=== PATIENT | male | born 1960 | race Caucasian/White ===

== ENCOUNTER 2016-10-28 08:52 | Inpatient (IN) | payer OTHER ==
[~2016-10-28] VITALS: Ht 167.6 cm; Wt 102.5 kg
[2016-10-28] VITALS (13 sets, daily range): BP systolic 97–154; BP diastolic 51–86; PULSE 74–111; RESP 10–24; TEMP 97.8–98.8; O2SAT 98–100
[2016-10-28] MEDS ORDERED: OCTREOTIDE ACETATE 50 MCG/ML AMP IVP ONE (09:15)
[2016-10-28] MEDS ORDERED: KETOROLAC TROMETHAMINE 30 MG VIAL IVP ONE (09:15)
[2016-10-28] MEDS ORDERED: PANTOPRAZOLE SODIUM 80 MG in NS 100 ML IV ONE (09:15)
[2016-10-28] MEDS ORDERED: PROCHLORPERAZINE EDISYLATE 10 MG/2 ML VIAL IVP ONE (09:15)
[2016-10-28] MEDS ORDERED: cefTRIAXone 1 GM IVPB PREMIX 50 ML IV ONE (09:15)
[2016-10-28] MEDS ORDERED: NACL 0.9% 1,000 ML IV ONE (09:15)
[2016-10-28] MEDS ORDERED: ONDANSETRON HCL 4 MG/2 ML VIAL IVP ONE (09:15)
[2016-10-28] MEDS ORDERED: PANTOPRAZOLE SODIUM 40 MG/VIAL (PROTONIX) ONE (09:23)
[2016-10-28 09:26] LABS: BASOPHILS % (AUTO) 0.6 % (0.0-2.0); EOSINOPHILS % (AUTO) 0.9 % (0.0-4.0); HEMATOCRIT 30.3 % (36-54); HEMOGLOBIN 9.8 g/dL (14.0-18.0); LYMPHOCYTES # (AUTO) 0.6 K/uL (1.0-5.5); LYMPHOCYTES % (AUTO) 15.5 % (20.5-51.5); MEAN CORPUSCULAR HEMOGLOBIN 27 pg (27-31); MEAN CORPUSCULAR HGB CONC 32 % (32-36); MEAN CORPUSCULAR VOLUME 82 fL (79.0-98.0); MONOCYTES # (AUTO) 0.4 K/uL (0.0-1.0); MONOCYTES % (AUTO) 8.8 % (1.7-9.3); NEUTROPHILS # (AUTO) 3.1 K/uL (1.8-7.7); NEUTROPHILS % (AUTO) 74.2 % (40.0-70.0); PLATELET COUNT (AUTO) 104 K/uL (130-430); RED BLOOD CELL COUNT(AUTO) 3.68 MIL/uL (4.2-6.2); RED CELL DISTRIBUTION WIDTH 16.5 % (9.0-15.0); WHITE BLOOD COUNT (AUTO) 4.1 K/uL (4.8-10.8)
[2016-10-28 09:38] LABS: CALCIUM 8.1 mg/dL (8.4-11.0); CREATININE 0.98 mg/dL (0.55-1.30); POTASSIUM 4.1 mmol/L (3.5-5.1)
[2016-10-28 09:42] LABS: ALBUMIN 2.8 g/dL (3.4-4.8); TOTAL PROTEIN, SERUM 6.5 g/dL (6.4-8.3)
[2016-10-28] MEDS ORDERED: D5NS 1,000 ML IV ONE (11:00)
[2016-10-28] MEDS ORDERED: ONDANSETRON HCL 4 MG/2 ML VIAL ONE (12:19)
[2016-10-28] MEDS ORDERED: LORazepam 2 MG/ML VIAL IVP PRN (13:15)
[2016-10-28 14:36] LABS: HEMATOCRIT 25.9 % (36-54); HEMOGLOBIN 8.2 g/dL (14.0-18.0)
[2016-10-28] MEDS: chlordiazePOXIDE HCL 25 MG CAPSULE PO SCH ×2 (14:53→21:06)
[2016-10-28] MEDS: OCTREOTIDE ACETATE 1,250 MCG in NS 243.75 ML IV SCH (15:42)
[2016-10-28] MEDS ORDERED: cefTRIAXone 1 GM in D5W 50 ML IV ONE (16:45)
[2016-10-28] MEDS: FOLIC ACID 1 MG, THIAMINE HCL 100 MG, MAGNESIUM SULFATE 1 GM, MVI 10 ML in NACL 0.9% 1,... IV SCH (18:01)
[2016-10-28 19:40] LABS: HEMATOCRIT 24.2 % (36-54); HEMOGLOBIN 7.7 g/dL (14.0-18.0)
[2016-10-28] MEDS: PANTOPRAZOLE SODIUM 40 MG/VIAL (PROTONIX) IVP SCH (21:06)
[2016-10-28] MEDS ORDERED: LACTULOSE 20 GM/30 ML UDC PO ONE (21:30)
[2016-10-28 22:10] LABS: INR 1.3 (0.80-1.20); PROTHROMBIN TIME 13.7 SECS (9.5-12.5)
[2016-10-29] VITALS (23 sets, daily range): BP systolic 120–178; BP diastolic 56–103; PULSE 67–96; RESP 9–22; TEMP 98.7–99.2; O2SAT 96–100
[2016-10-29] MEDS ORDERED: FLU VACC QS 2016-17(36MOS+)/PF 0.5 ML/SYR SYRINGE I.M. PRN (00:15)
[2016-10-29] MEDS: D5NS 1,000 ML IV SCH ×3 (07:30→17:30)
[2016-10-29] MEDS: chlordiazePOXIDE HCL 25 MG CAPSULE PO SCH ×3 (09:00→20:15)
[2016-10-29] MEDS: LACTULOSE 20 GM/30 ML UDC PO SCH ×4 (09:00→20:12)
[2016-10-29 09:16] LABS: HEMATOCRIT 27.8 % (36-54)
[2016-10-29] MEDS: PANTOPRAZOLE SODIUM 40 MG/VIAL (PROTONIX) IVP SCH (09:17)
[2016-10-29 09:26] LABS: INR 1.2 (0.80-1.20); PROTHROMBIN TIME 13.3 SECS (9.5-12.5)
[2016-10-29 13:09] LABS: HEPATITIS A AB, IgM Negative (Negative); HEPATITIS B CORE AB, IgM Negative (Negative); HEPATITIS B SURFACE AG Negative (Negative)
[2016-10-29] MEDS: fentaNYL CITRATE/PF 100 MCG/2 ML AMP ONE ×3 (13:23→14:32)
[2016-10-29 13:57] LABS: HEMATOCRIT 27.3 % (36-54)
[2016-10-29] MEDS: MIDAZOLAM HCL 5 MG/5 ML VIAL ONE ×2 (14:27→14:29)
[2016-10-29] MEDS: OCTREOTIDE ACETATE 1,250 MCG in NS 243.75 ML IV SCH (15:15)
[2016-10-29] MEDS ORDERED: PANTOPRAZOLE SODIUM 80 MG in NS 100 ML IV ONE (15:30)
[2016-10-29] MEDS: MORPHINE 2 MG/ML INJ. SYRINGE IVP PRN ×2 (15:52→19:28)
[2016-10-29] MEDS: FOLIC ACID 1 MG, THIAMINE HCL 100 MG, MAGNESIUM SULFATE 1 GM, MVI 10 ML in NACL 0.9% 1,... IV SCH (16:00)
[2016-10-29] MEDS ORDERED: ONDANSETRON HCL 4 MG/2 ML VIAL IVP PRN (17:15)
[2016-10-29] MEDS: PANTOPRAZOLE SODIUM 40 MG in NS 50 ML IV SCH ×2 (18:35→22:03)
[2016-10-29 20:12] LABS: HEMATOCRIT 31.1 % (36-54); HEMOGLOBIN 10.1 g/dL (14.0-18.0)
[2016-10-29] MEDS: cefTRIAXone 1 GM in D5W 50 ML IV SCH (20:12)
[2016-10-29] MEDS: PROPRANOLOL HCL 10 MG TABLET (INDERAL) PO SCH (20:15)
[2016-10-30] VITALS (13 sets, daily range): BP systolic 127–145; BP diastolic 81–91; PULSE 61–79; RESP 11–18; TEMP 97.9–98.7; O2SAT 97–100
[2016-10-30 02:00] LABS: HEMATOCRIT 28.3 % (36-54); HEMOGLOBIN 9.6 g/dL (14.0-18.0)
[2016-10-30] MEDS: PANTOPRAZOLE SODIUM 40 MG in NS 50 ML IV SCH ×5 (03:53→22:29)
[2016-10-30] MEDS: D5NS 1,000 ML IV SCH ×2 (03:53→10:32)
[2016-10-30 08:21] LABS: HEMATOCRIT 27.2 % (36-54)
[2016-10-30] MEDS: chlordiazePOXIDE HCL 25 MG CAPSULE PO SCH ×3 (08:23→21:22)
[2016-10-30] MEDS: LACTULOSE 20 GM/30 ML UDC PO SCH ×4 (08:23→21:20)
[2016-10-30] MEDS: PROPRANOLOL HCL 10 MG TABLET (INDERAL) PO SCH ×2 (08:24→21:22)
[2016-10-30 13:27] LABS: HEMATOCRIT 28.9 % (36-54); HEMOGLOBIN 9.5 g/dL (14.0-18.0)
[2016-10-30] MEDS: OCTREOTIDE ACETATE 1,250 MCG in NS 243.75 ML IV SCH (16:24)
[2016-10-30] MEDS: FOLIC ACID 1 MG, THIAMINE HCL 100 MG, MAGNESIUM SULFATE 1 GM, MVI 10 ML in NACL 0.9% 1,... IV SCH (17:59)
[2016-10-30 20:55] LABS: HEMATOCRIT 30.2 % (36-54); HEMOGLOBIN 9.8 g/dL (14.0-18.0)
[2016-10-30] MEDS: cefTRIAXone 1 GM in D5W 50 ML IV SCH (21:20)
[2016-10-31 00:49] VITALS: BP 125/75; PULSE 62; RESP 17; TEMP 99; O2SAT 98
[2016-10-31] MEDS: PANTOPRAZOLE SODIUM 40 MG in NS 50 ML IV SCH ×3 (03:51→13:20)
[2016-10-31 04:04] VITALS: BP 147/83; PULSE 92; RESP 21; TEMP 98; O2SAT 97
[2016-10-31 04:06] VITALS: BP 123/72; PULSE 66; RESP 19; TEMP 98.9; O2SAT 96
[2016-10-31] MEDS: chlordiazePOXIDE HCL 25 MG CAPSULE PO SCH (10:26)
[2016-10-31] MEDS: PROPRANOLOL HCL 10 MG TABLET (INDERAL) PO SCH (10:27)
[2016-10-31] MEDS: LACTULOSE 20 GM/30 ML UDC PO SCH ×2 (10:27→13:17)
[2016-10-31 12:00] VITALS: BP 138/90; PULSE 63; RESP 16; TEMP 97.5; O2SAT 97
[2016-10-31] MEDS ORDERED: FOLIC ACID 1 MG, THIAMINE HCL 100 MG, MAGNESIUM SULFATE 1 GM, MVI 10 ML in NACL 0.9% 1,... IV SCH (13:07)
[2016-10-31 15:25] VITALS: BP 136/82; PULSE 65; RESP 20; TEMP 99.5; O2SAT 98
[2016-10-31 16:00] VITALS: BP 113/87; PULSE 71; RESP 18; TEMP 98.9; O2SAT 97
== END 2016-10-31 17:00 | disposition home or self-care (01) | DRG 950 ==
LOC: SED 08:52 → SIC 10:58 → SMU 10-30 16:35
PROVIDERS: ADMIT Internal Medicine Hospice and Palliative Medicine; ATTEND Internal Medicine Hospice and Palliative Medicine
PROC: 06L34CZ Occlusion of Esophageal Vein with Extraluminal Device, Percutaneous Endoscopic Approach (ICD-10-PCS; 2016-10-29)
PROC: 0DB68ZX Excision of Stomach, Via Natural or Artificial Opening Endoscopic, Diagnostic (ICD-10-PCS; principal; 2016-10-29 13:30)
PROC: 30233N1 Transfusion of Nonautologous Red Blood Cells into Peripheral Vein, Percutaneous Approach (ICD-10-PCS; 2016-10-29 13:30)
DX: K70.30 Alcoholic cirrhosis of liver without ascites (principal); I85.01 Esophageal varices with bleeding; K72.90 Hepatic failure, unspecified without coma; K92.0 Hematemesis; I10 Essential (primary) hypertension; B19.20 Unspecified viral hepatitis C without hepatic coma; F10.10 Alcohol abuse, uncomplicated; K31.9 Disease of stomach and duodenum, unspecified
CPT/HCPCS: 36415; 43239; 43244; 76700-TC; 80053; 80074; 82140-TC; 82150-TC; 83605; 83690-TC; 85018-TC; 85025; 85610-TC; 86886; 86900; 86901; 86920; 87040-TC; 87081; 88305; 88312; 96365; 96367; 96375; 99291; C9113; J0696; J0780; J2250; J2270; J2354; J2405; J3010; J3411; J3475; J3490; J7030; J7042; J7050; J7060; P9021; Q2037